=== PATIENT | male | born 1965 | race African-American/Black ===

== ENCOUNTER 2018-01-24 09:52 | Inpatient (IN) ==
[2018-01-24 11:05] LABS: Basophils % 0.7 % (0.0-0.8); Eosinophils # 0.1 10*3/uL (0.0-0.87); Eosinophils % 2.6 % (0.00-10.9); Hematocrit 34.4 VOL% (42.0-52.0); Hemoglobin 11.2 GM/DL (14.0-18.0); Immature Granulocytes % 0.2 %; Immature Granulocytes Absolute 0.01 #; Lymphocytes # 0.9 10*3/uL (1.4-4.0); Lymphocytes % 21.9 % (21.2-54.2); Mean Corpuscular HGB Conc 32.6 GM/DL (32-36); Mean Corpuscular Hemoglobin 29 PG (27-34); Mean Corpuscular Volume 89.4 FL (87-102); Mean Platelet Volume 10.4 FL (9.6-12.0); Monocytes # 0.7 10*3/uL (0.11-0.8); Neutrophils # 2.5 10*3/uL (1.4-7.4); Neutrophils % 58.6 % (38.7-73.9); Platelet Count 300 T/CUMM (130-400); Red Blood Count 3.85 MC/CUMM (3.8-5.5); Red Cell Distribution Width 14.2 % (9.3-17.3); White Blood Count 4.3 T/CUMM (4-12)
[2018-01-24 11:36] LABS: Eosinophils 1 % (0-10); Lymphocytes 14 % (20-55); Platelet Estimate Normal; Segmented Neutrophils 70 % (50-85); Total Cells Counted 100
[2018-01-24 13:18] LABS: Alanine Aminotransferase 20 U/L (16-61); Albumin 2.7 G/DL (3.4-5.0); Alkaline Phosphatase 48 U/L (45-117); Aspartate Amino Transferase 18 U/L (0-37); Bilirubin,Total < 0.39 MG/DL (0.2-1.0); Blood Urea Nitrogen 9 MG/DL (7-18); Calcium 8.1 MG/DL (8.5-10.1); Glucose 98 MG/DL (74-106); Osmolality,Calculated 271.8 MOS/KG (273-304); Potassium 3.1 MMOL/L (3.5-5.1); Sodium 137 MMOL/L (136-145); Total Protein 7.6 G/DL (6.4-8.3)
[2018-01-24] MEDS ORDERED: POTASSIUM CHLORIDE 20 MEQ TABLET PO STA (13:32)
[2018-01-24] MEDS ORDERED: POTASSIUM CHLORIDE 20 MEQ TABLET PO ONE (13:35)
[2018-01-24] MEDS ORDERED: GLUCAGON 1 MG VIAL IM PRN (14:33)
[2018-01-24] MEDS ORDERED: DEXTROSE 50% 25 GM/50 ML VIAL IV PRN (14:33)
[2018-01-24] MEDS ORDERED: LISINOPRIL 10 MG TABLET PO STA (14:34)
[2018-01-24 14:48] LABS: Risk Ratio 3.45; VLDL CHOLESTEROL 13.4 MG/DL
[2018-01-24] MEDS ORDERED: PIPERACILLIN/TAZOBACTAM 3,375 MG in SODIUM CHLORIDE 0.9% 100 ML IV SCH (15:00)
[2018-01-24 15:31] LABS: Lactic Acid 1.4 MMOL/L (0.4-2.0)
[2018-01-24 16:45] LABS: HIV Antigen/Antibody Result Nonreactive (Nonreactive)
[2018-01-24] MEDS: INSULIN REGULAR 100 UNIT/ML SUBCUT SCH ×2 (18:35→22:19)
[2018-01-24] MEDS ORDERED: PNEUMOCOCCAL VACCINE (23 VALENT) 0.5 ML VIAL IM ONE (18:55)
[2018-01-24] MEDS: LEVOFLOXACIN INJ 750 MG in PREMIX 1 EACH IV SCH (19:55)
[2018-01-24] MEDS ORDERED: CARVEDILOL 6.25 MG TABLET PO SCH (21:00)
[2018-01-24] MEDS: VANCOMYCIN INJ 1,500 MG in SODIUM CHLORIDE 0.9% 500 ML IV SCH (22:31)
[2018-01-25] MEDS: POTASSIUM CHLORIDE RIDER 10 MEQ in PREMIX 1 EACH IV PRN ×3 (02:16→04:44)
[2018-01-25 06:05] LABS: Basophils % 0.8 % (0.0-0.8); Eosinophils # 0.1 10*3/uL (0.0-0.87); Hematocrit 35.9 VOL% (42.0-52.0); Hemoglobin 11.7 GM/DL (14.0-18.0); Immature Granulocytes % 0.3 %; Immature Granulocytes Absolute 0.01 #; Lymphocytes # 1.2 10*3/uL (1.4-4.0); Lymphocytes % 31.7 % (21.2-54.2); Mean Corpuscular HGB Conc 32.6 GM/DL (32-36); Mean Corpuscular Hemoglobin 29 PG (27-34); Mean Corpuscular Volume 89.3 FL (87-102); Mean Platelet Volume 10.4 FL (9.6-12.0); Monocytes # 0.6 10*3/uL (0.11-0.8); Monocytes % 15.7 % (1.7-12.7); Neutrophils # 1.8 10*3/uL (1.4-7.4); Neutrophils % 48.5 % (38.7-73.9); Platelet Count 320 T/CUMM (130-400); Red Blood Count 4.02 MC/CUMM (3.8-5.5); Red Cell Distribution Width 14.3 % (9.3-17.3); White Blood Count 3.6 T/CUMM (4-12)
[2018-01-25] MEDS: VANCOMYCIN INJ 1,500 MG in SODIUM CHLORIDE 0.9% 500 ML IV SCH ×3 (06:36→22:43)
[2018-01-25 06:43] LABS: Albumin 2.6 G/DL (3.4-5.0); Bilirubin,Total 1.3 MG/DL (0.2-1.0); Calcium 8.5 MG/DL (8.5-10.1); Osmolality,Calculated 270.8 MOS/KG (273-304); Potassium 4.3 MMOL/L (3.5-5.1)
[2018-01-25] MEDS ORDERED: LIDOCAINE 1% 20 ML VIAL IM ONE (07:04)
[2018-01-25 07:34] LABS: Band Neutrophils 4 % (0-10); Eosinophils 6 % (0-10); Lymphocytes 35 % (20-55); Platelet Estimate Normal; Segmented Neutrophils 50 % (50-85); Total Cells Counted 100
[2018-01-25] MEDS ORDERED: GLUCAGON 1 MG VIAL IM PRN (08:54)
[2018-01-25] MEDS ORDERED: DEXTROSE 50% 25 GM/50 ML VIAL IV PRN (08:54)
[2018-01-25] MEDS ORDERED: LISINOPRIL 20 MG TABLET PO SCH (09:00)
[2018-01-25] MEDS: amLODIPine 10 MG TABLET PO SCH (09:09)
[2018-01-25] MEDS: hydroCHLOROthiazide 25 MG TABLET PO SCH (09:09)
[2018-01-25] MEDS: INSULIN REGULAR 100 UNIT/ML SUBCUT SCH ×4 (09:10→20:34)
[2018-01-25 11:33] LABS: Cholesterol Crystals None Seen /LPF
[2018-01-25 12:27] LABS: Lymphocytes,Synovial Fluid 3 %; Neutrophils,Synovial Fluid 95 %
[2018-01-25 12:50] LABS: Uric Acid,Synovial Fluid 3.5 MG/DL
[2018-01-25] MEDS: LEVOFLOXACIN INJ 750 MG in PREMIX 1 EACH IV SCH (20:30)
[2018-01-26] MEDS: VANCOMYCIN INJ 1,500 MG in SODIUM CHLORIDE 0.9% 500 ML IV SCH ×3 (06:06→23:30)
[2018-01-26] MEDS: INSULIN REGULAR 100 UNIT/ML SUBCUT SCH ×4 (07:57→21:42)
[2018-01-26] MEDS: amLODIPine 10 MG TABLET PO SCH (07:59)
[2018-01-26] MEDS: hydroCHLOROthiazide 25 MG TABLET PO SCH (07:59)
[2018-01-26] MEDS ORDERED: LIDOCAINE 1%/EPI INJ 20 ML VIAL MISC INJ ONE (09:37)
[2018-01-26] MEDS: MUPIROCIN 2% OINT 22 GM TUBE TOP SCH ×2 (14:22→21:43)
[2018-01-26] MEDS: LEVOFLOXACIN INJ 750 MG in PREMIX 1 EACH IV SCH (21:43)
[2018-01-27] MEDS: VANCOMYCIN INJ 1,500 MG in SODIUM CHLORIDE 0.9% 500 ML IV SCH ×2 (06:08→16:24)
[2018-01-27] MEDS: INSULIN REGULAR 100 UNIT/ML SUBCUT SCH ×4 (08:33→21:11)
[2018-01-27] MEDS: hydroCHLOROthiazide 25 MG TABLET PO SCH (08:33)
[2018-01-27] MEDS: amLODIPine 10 MG TABLET PO SCH (08:33)
[2018-01-27] MEDS: MUPIROCIN 2% OINT 22 GM TUBE TOP SCH ×3 (12:32→21:11)
[2018-01-27] MEDS ORDERED: ACETAMINOPHEN 325 MG TABLET PO PRN (19:09)
[2018-01-27] MEDS: LEVOFLOXACIN INJ 750 MG in PREMIX 1 EACH IV SCH (21:12)
[2018-01-28] MEDS: VANCOMYCIN INJ 1,500 MG in SODIUM CHLORIDE 0.9% 500 ML IV SCH (00:07)
[2018-01-28] MEDS: INSULIN REGULAR 100 UNIT/ML SUBCUT SCH ×2 (07:44→12:24)
[2018-01-28] MEDS ORDERED: VANCOMYCIN INJ 2,000 MG in SODIUM CHLORIDE 0.9% 500 ML IV SCH (09:00)
[2018-01-28] MEDS: MUPIROCIN 2% OINT 22 GM TUBE TOP SCH (09:04)
[2018-01-28] MEDS: hydroCHLOROthiazide 25 MG TABLET PO SCH (09:05)
[2018-01-28] MEDS: amLODIPine 10 MG TABLET PO SCH (09:05)
[2018-01-28 12:39] VITALS: BP 126/88
== END 2018-01-28 12:44 | disposition home or self-care (01) | DRG 550 ==
LOC: N.ED 09:52 → N.EDINP 14:26 → SUATTDRO 14:26 → N.5E 16:17
PROVIDERS: ADMIT Internal Medicine Infectious Disease; ATTEND Family Medicine

== ENCOUNTER 2018-01-28 16:42 | Inpatient (IN) ==
[2018-01-28] MEDS ORDERED: MORPHINE 4 MG/1 ML VIAL IV PRN (18:26)
[2018-01-28] MEDS ORDERED: traZODone 50 MG TABLET PO PRN (18:26)
[2018-01-28] MEDS ORDERED: ACETAMINOPHEN 325 MG TABLET PO PRN (18:26)
[2018-01-28] MEDS ORDERED: ONDANSETRON 4 MG/2 ML VIAL IV PRN (18:26)
[2018-01-28] MEDS ORDERED: NICOTINE 21 MG/24 HR PATCH TRANSDERM PRN (18:26)
[2018-01-28] MEDS ORDERED: ZALEPLON 5 MG CAPSULE PO PRN (18:26)
[2018-01-28] MEDS: SODIUM CHLORIDE 0.45% 1,000 ML IV SCH (19:15)
[2018-01-28] MEDS: PIPERACILLIN/TAZOBACTAM 3,375 MG in SODIUM CHLORIDE 0.9% 100 ML IV SCH (19:22)
[2018-01-28] MEDS ORDERED: cefTRIAXone 2,000 MG in SYRINGE 1 EACH IV SCH (20:00)
[2018-01-28] MEDS: ENOXAPARIN 40 MG/0.4 ML SYRINGE SUBCUT SCH (21:37)
[2018-01-29] MEDS: PIPERACILLIN/TAZOBACTAM 3,375 MG in SODIUM CHLORIDE 0.9% 100 ML IV SCH ×3 (03:55→19:23)
[2018-01-29 06:57] LABS: Basophils % 0.8 % (0.0-0.8); Eosinophils # 0.2 10*3/uL (0.0-0.87); Eosinophils % 3.9 % (0.00-10.9); Hemoglobin 12.2 GM/DL (14.0-18.0); Immature Granulocytes % 0.4 %; Immature Granulocytes Absolute 0.02 #; Lymphocytes # 1.3 10*3/uL (1.4-4.0); Lymphocytes % 25.6 % (21.2-54.2); Mean Corpuscular Hemoglobin 29 PG (27-34); Mean Corpuscular Volume 87.9 FL (87-102); Mean Platelet Volume 10.4 FL (9.6-12.0); Monocytes # 0.5 10*3/uL (0.11-0.8); Monocytes % 10.8 % (1.7-12.7); Neutrophils # 2.9 10*3/uL (1.4-7.4); Neutrophils % 58.5 % (38.7-73.9); Platelet Count 388 T/CUMM (130-400); Red Blood Count 4.21 MC/CUMM (3.8-5.5); Red Cell Distribution Width 13.8 % (9.3-17.3); White Blood Count 4.9 T/CUMM (4-12)
[2018-01-29] MEDS: amLODIPine 10 MG TABLET PO SCH (09:14)
[2018-01-29] MEDS: hydroCHLOROthiazide 25 MG TABLET PO SCH (09:14)
[2018-01-29] MEDS: ENOXAPARIN 40 MG/0.4 ML SYRINGE SUBCUT SCH ×2 (09:14→21:30)
[2018-01-29] MEDS: SODIUM CHLORIDE 0.45% 1,000 ML IV SCH (19:24)
[2018-01-30] MEDS: PIPERACILLIN/TAZOBACTAM 3,375 MG in SODIUM CHLORIDE 0.9% 100 ML IV SCH ×2 (04:00→13:30)
[2018-01-30] MEDS ORDERED: LEVOFLOXACIN 750 MG TABLET PO SCH (09:00)
[2018-01-30] MEDS: amLODIPine 10 MG TABLET PO SCH (09:28)
[2018-01-30] MEDS: hydroCHLOROthiazide 25 MG TABLET PO SCH (09:28)
[2018-01-30] MEDS: ENOXAPARIN 40 MG/0.4 ML SYRINGE SUBCUT SCH (09:29)
[2018-01-30] MEDS: SODIUM CHLORIDE 0.45% 1,000 ML IV SCH (13:40)
[2018-01-30 17:09] VITALS: BP 123/93
[2018-01-30] MEDS ORDERED: MUPIROCIN 2% OINT 22 GM TUBE TOP SCH (18:30)
== END 2018-01-30 18:10 | disposition home or self-care (01) | DRG 550 ==
LOC: N.3E 17:20
PROVIDERS: ADMIT Family Medicine; ATTEND Family Medicine